=== PATIENT | female | born 1995 | race Caucasian/White ===

== ENCOUNTER 2017-07-13 14:44 | Emergency (ER) | payer OTHER ==
[~2017-07-13] VITALS: Ht 167.6 cm; Wt 72.6 kg
[~2017-07-13 14:44] MED LIST: ACETAMINOPHEN-1 EAC1 PO; BACTROBAN15 GM TP; BENZONATATE; DOXYCYCLINE 10100 M1 PO; ERYTHROMYCIN E3.5 G1 OPHTHALMIC; MUCINEX TA600 MG/TA1; NAPROSYN375 MG PO; NOHOMEMEDICATIONS; PRILOSEC40 MG PO; RANITIDINE 150150 M1; ZOFRAN 4 MG ORAL4 M1 DIS; ZPAK PO; iron
[2017-07-13] MEDS ORDERED: IRON325 PO (14:55)
[2017-07-13] MEDS ORDERED: TRINESSA1 EACH PO (14:55)
[2017-07-13 15:28] LABS: ABSOLUTE BASOPHILS 0.1 thou/uL (0.0-0.2); ABSOLUTE EOSINOPHILS 0.4 thou/uL (0.0-0.7); ABSOLUTE LYMPHOCYTES 2.1 thou/uL (0.8-5.3); ABSOLUTE MONOCYTES 0.7 thou/uL (0.0-1.2); ABSOLUTE NEUTROPHILS 5.8 thou/uL (1.6-8.1); BASOPHILS 0.8 %; EOSINOPHILS 3.9 %; HEMATOCRIT 42.5 % (37.0-47.0); HEMOGLOBIN 14.3 gm/dL (12.0-15.0); MCH 27.6 pg (26.0-34.0); MCHC 33.7 g/dL (28.0-37.0); MCV 81.7 fL (80.0-100.0); MPV 6.9 fl. (7.2-11.1); NUCLEATED RBCS 0 /100WBC; PLATELET COUNT* 336 thou/uL (150-400); POLYS 64.3 %; RDW-CV 12.4 % (10.5-14.5)
[2017-07-13 15:37] LABS: CALCIUM 9.2 mg/dL (8.5-10.1); CREATININE 0.9 mg/dL (0.6-1.3); POTASSIUM 3.9 mmol/L (3.5-5.1)
[2017-07-13 15:40] LABS: URINE BILIRUBIN NEGATIVE (Negative); URINE BLOOD TRACE (Negative); URINE CLARITY CLEAR; URINE COLOR YELLOW; URINE GLUCOSE-RANDOM NEGATIVE (Negative); URINE KETONES NEGATIVE (Negative); URINE LEUKOCYTES 3+ (Negative); URINE NITRITE NEGATIVE (Negative); URINE PROTEIN NEGATIVE (Negative); URINE SPECIFIC GRAVITY 1.015 (1.005-1.030); URINE UROBILINOGEN 0.2 E.U./dl (0.2-1.0)
[2017-07-13 15:41] LABS: ALBUMIN 3.6 g/dL (3.4-5.0); TOTAL BILIRUBIN 0.5 mg/dL (<0.1-1.0); TOTAL PROTEIN 7.5 g/dL (6.4-8.2)
[2017-07-13 15:53] LABS: SQUAMOUS >10 Many /LPF (0-3)
[2017-07-13 15:54] LABS: CRYSTALS None Seen /LPF (None Seen); MUCUS None Seen strn/LPF (None Seen)
[2017-07-13 15:56] LABS: CASTS None Seen /LPF (None Seen); URINE RBC 0-2 Rare /HPF (0-2)
[2017-07-13 17:23] VITALS: BP 136/88
== END 2017-07-13 17:23 | disposition home or self-care (01) ==
LOC: M.ERS 14:44
PROVIDERS: Physician Assistant Surgical
DX: R10.32 Left lower quadrant pain (principal)